=== PATIENT | male | born 1955 | race Caucasian/White ===

== ENCOUNTER 2019-02-02 16:21 | Emergency (ER) | payer SELFPAY ==
[~2019-02-02] VITALS: Wt 80.0 kg
[2019-02-02 16:31] VITALS: BP 150/74; PULSE 58; RESP 18
[2019-02-02] MEDS ORDERED: OXYCODONE/ACETAMINOPHEN (10/325) TAB PO ONE (17:30)
--- NOTE | 2019-02-02 17:34 | ERD ---
ER Documentation Chief Complaint Chief Complaint R HIP PAIN FROM A FALL WEEK AGO. NO DEFORMITY NOTED. HPI 63-year-old male presents with a history stated that [place] He has a history of chronic right hip pain. He presented to the hospital and states that he had normal x-rays. He states that he has a appointment with his pain management doctor in 3 days. Requesting 1 Percocet p.o. as it is important and vent tonight. He is able to ambulate although with pain. Denies any deficits, weakness, head injury, vomiting, visua l changes. Denies any bleeding or lacerations. ROS All systems reviewed and are negative except as per history of present illness. Allergies Allergies: Coded Allergies: Penicillins (Verified Allergy, Unknown, HIVES, 02/02/19) PER LAURENT BIANCHI PMhx/Soc Medical and Surgical Hx: pt denies Medical Hx History of Surgery: Yes (right hip and wrist surgery) Hx Alcohol Use: No Hx Substance Use: No Hx Tobacco Use: Yes (1/2 pkg day) Smoking Status: Current every day smoker Fmx Family History: No diabetes, No coronary disease, No other Physical Exam Vitals Vital Signs Date Temp Pulse Resp B/P (MAP) Pulse Ox O2 O2 Flow FiO2 Time Delivery Rate 02/02/19 98.2 58 18 150/74 99 16:31 (99) Physical Exam Const: No acute distress Head: Atraumatic Eyes: Normal Conjunctiva ENT: Normal External Ears, Nose and Mouth. Neck: Full range of motion. No meningismus. Resp: Clear to auscultation bilaterally Cardio: Regular rate and rhythm, no murmurs Abd: Soft, non tender, non distended. Normal bowel sounds Skin: No petechiae or rashes Back: No midline or flank tenderness Ext: No cyanosis, or edema. Mild tenderness right greater trochanter. Minimal pain with passive range of motion of right hip. Patient is amatory with minimal discomfort and no deficits or weakness. Neur: Awake and alert Psych: Normal Mood and Affect Results 24 hrs Current Medications Medications Dose Sig/Kameron Start Time Status Last (Trade) Ordered Route PRN Stop Time Admin Dose Reason Admin Oxycodone/ 1 tab ONCE ONCE 02/02/19 DC 02/02/19 Acetaminophen PO 17:30 17:21 (Endocet 02/02/19 17:31 (10/ 325)) Procedures/MDM 63-year-old male presents with right hip pain after fall 1 week ago. He states that he had normal x-rays requesting one pain pill until he sees his pain management doctor. Patient has no signs or symptoms suggest head injury, neck injury, deficits, weakness or infection. Exam does not suggest fracture, dislocation. Patient was discharged home with recommendations for primary care follow-up, pain management as he states he is scheduled, return precautions for new or worsening symptoms. Note. Patient looks curiously familiar to another patient who presents regularly with similar chief complaint and past medical history. Registration confirms patient does not have identification and does not present insurance information or identifying documents. per pain management guidelines patient will not be given a prescription for controlled substance although patient does not request a prescription. Departure Diagnosis: Primary Impression: Hip pain Laterality: right Qualified Codes: M25.551 - Pain in right hip Condition: Stable Patient Instructions: Hip Strain Additional Instructions: Recheck for new or worsening symptoms with primary care doctor. TIMMY SCHMIDT MD February 02, 2019 17:33
== END 2019-02-02 17:46 | disposition left against medical advice (07) ==
LOC: FTE 16:21
DX: M25.551 Pain in right hip (principal); F17.210 Nicotine dependence, cigarettes, uncomplicated
CPT/HCPCS: 99283

== ENCOUNTER 2019-02-07 13:41 | Emergency (ER) | payer SELFPAY ==
[~2019-02-07] VITALS: Wt 80.0 kg
[2019-02-07 13:51] VITALS: BP 143/71; PULSE 71; RESP 18
--- NOTE | 2019-02-07 14:03 | EN ---
Date/Time of Note Date/Time of Note DATE: 02/07/19 TIME: 14:03 ER Progress Note Rapid medical evaluation was initiated on the patient. 63-year-old male presenting to the emergency department with complaints of right hip pain which is chronic in nature. He is requesting pain medication in the department and will be sent to ED 2 for further management. JEREMY VALLE PA-C February 07, 2019 14:03
--- NOTE | 2019-02-07 14:57 | ERD ---
ER Documentation Chief Complaint Chief Complaint RIGHT HIP PAIN, HAS OLD FX HPI 63-year-old male with past medical history of chronic pain followed by pain service who presents with complaint of chronic right hip pain patient known to ER for multiple visits including suspicion for use of aliases. Patient asking for single p.o. dose of Percocet at the time of evaluation. Was seen in the ER 3 days ago for similar complaints. Patient states he thought he had pain management follow-up today but states that he Medi-Rory confused as his follow-up is tomorrow allegedly. ROS All systems reviewed and are negative except as per history of present illness. Allergies Allergies: Coded Allergies: Penicillins (Verified Allergy, Unknown, HIVES, 02/07/19) PER LAURENT BIANCHI PMhx/Soc History of Surgery: Yes (right hip and wrist surgery) Anesthesia Reaction: No Hx Neurological Disorder: No Hx Respiratory Disorders: No Hx Cardiac Disorders: No Hx Psychiatric Problems: No Hx Miscellaneous Medical Probl: No Hx Alcohol Use: No Hx Substance Use: No Hx Tobacco Use: Yes (1/2 pkg day) Smoking Status: Current every day smoker FmHx Family History: No diabetes, No coronary disease, No other Physical Exam Vitals Vital Signs Date Temp Pulse Resp B/P (MAP) Pulse Ox O2 O2 Flow FiO2 Time Delivery Rate 02/07/19 98.1 71 18 143/71 99 13:51 (95) Physical Exam Const: No acute distress Head: Atraumatic Eyes: Normal Conjunctiva ENT: Normal External Ears, Nose and Mouth. Neck: Full range of motion. No meningismus. Resp: Clear to auscultation bilaterally Cardio: Regular rate and rhythm, no murmurs Abd: Soft, non tender, non distended. Normal bowel sounds Skin: No petechiae or rashes Back: No midline or flank tenderness Ext: No cyanosis, or edema Neur: Awake and alert Psych: Normal Mood and Affect Results 24 hrs Current Medications Medications Dose Sig/Kameron Start Time Status Last (Trade) Ordered Route PRN Stop Time Admin Dose Reason Admin Oxycodone/ 1 tab ONCE ONCE 02/07/19 DC 02/07/19 Acetaminophen PO 15:00 15:14 (Endocet 02/07/19 15:01 (10/ )) Procedures/MDM 63-year-old male presents with complaint of chronic right hip pain. Known to ER for multiple visits for same complaint. I have no suspicion for acute process and warranting emergent care or work-up. ED course: Single dose of Percocet, related to patient the need to establish care with pain management and have appropriate follow-up for his pain complaints DISPOSITION PLAN: We discussed follow up with the patient's primary care doctor within 24 to 48 hours. Patient counseled regarding my diagnostic impression and care plan. Prior to discharge all questions answered. Pt agrees with treatment plan and understands strict return precautions. Precautionary instructions provided including instructions to return to the ER if not improving or for any worsening or changing symptoms or concerns. Disclaimer: Inadvertent spelling and grammatical errors are likely due to EHR/dictation software use and do not reflect on the overall quality of patient care. Also, please note that the electronic time recorded on this note does not necessarily reflect the actual time of the patient encounter. Departure Diagnosis: Primary Impression: Hip pain Condition: Stable Patient Instructions: Chronic Pain Referrals: [facility] YOU HAVE RECEIVED A MEDICAL SCREENING EXAM AND THE RESULTS INDICATE THAT YOU DO NOT HAVE A CONDITION THAT REQUIRES URGENT TREATMENT IN THE EMERGENCY DEPARTMENT. FURTHER EVALUATION AND TREATMENT OF YOUR CONDITION CAN WAIT UNTIL YOU ARE SEEN IN YOUR DOCTORS OFFICE WITHIN THE NEXT 1-2 DAYS. IT IS YOUR RESPONSIBILITY TO MAKE AN APPOINTMENT FOR FOLOW-UP CARE. IF YOU HAVE A PRIMARY DOCTOR --you should call your primary doctor and schedule an appointment IF YOU DO NOT HAVE A PRIMARY DOCTOR YOU CAN CALL OUR PHYSICIAN REFERRAL HOTLINE AT IF YOU CAN NOT AFFORD TO SEE A PHYSICIAN YOU CAN CHOSE FROM THE FOLLOWING [facility] [address] [facility] [address] [facility] [place] [address] [facility] [facility] [facility] [address] [facility] [address] [facility]. [facility]. [address] Additional Instructions: Call your primary care doctor TOMORROW for an appointment during the next 2-3 days.See the doctor sooner or return here if your condition worsens before your appointment time. PAMELA BURGER PA-C February 07, 2019 14:57
[2019-02-07] MEDS ORDERED: OXYCODONE/ACETAMINOPHEN (10/325) TAB PO ONE (15:00)
== END 2019-02-07 15:15 | disposition home or self-care (01) ==
LOC: FTE 13:41
DX: M25.551 Pain in right hip (principal); F17.210 Nicotine dependence, cigarettes, uncomplicated
CPT/HCPCS: 99283

== ENCOUNTER 2019-02-10 09:25 | Emergency (ER) | payer SELFPAY ==
[~2019-02-10] VITALS: Ht 180.3 cm; Wt 79.0 kg
[2019-02-10 09:28] VITALS: BP 148/63; PULSE 66; RESP 16; Ht 180.3 cm; Wt 79.0 kg
[2019-02-10] MEDS ORDERED: ACETAMINOPHEN 500 MG TAB PO STA (10:03)
--- NOTE | 2019-02-10 10:16 | ERD ---
ER Documentation Chief Complaint Chief Complaint FOR PAIN MEDS , RT HIP , RT WRIST PAIN , OLD INJURY HPI Patient is a 63-year-old male with history of chronic right hip pain and right wrist pain who presents the ER for concerns of needing Percocet. Patient states he ran out of his Percocet he wants a refill. Patient states he has an appointment in 2 days at home and travel needs medications until that time. Patient denies any falls or trauma. Patient denies any fevers or chills. ROS All systems reviewed and are negative except as per history of present illness. Allergies Allergies: Coded Allergies: Penicillins (Verified Allergy, Unknown, HIVES, 02/07/19) PER LAURENT BIANCHI PMhx/Soc History of Surgery: Yes (right hip and wrist surgery) Anesthesia Reaction: No Hx Neurological Disorder: No Hx Respiratory Disorders: No Hx Cardiac Disorders: No Hx Psychiatric Problems: No Hx Miscellaneous Medical Probl: No Hx Alcohol Use: No Hx Substance Use: No Hx Tobacco Use: Yes (1/2 pkg day) Smoking Status: Never smoker FmHx Family History: No diabetes Physical Exam Vitals Vital Signs Date Temp Pulse Resp B/P (MAP) Pulse Ox O2 O2 Flow FiO2 Time Delivery Rate 02/10/19 98.0 66 16 148/63 99 09:28 (91) Physical Exam GENERAL: Well-developed, well-nourished male. Appears in no acute distress. HEAD: Normocephalic, atraumatic. EYES: Pupils are equally reactive bilaterally. EOMs grossly intact. No conjunctival erythema. NECK: Supple. No meningismus. Normal range of motion of the neck. LUNG: Clear to auscultation bilaterally. No rhonchi, wheezing, rales or coarse breath sounds. HEART: Regular rate and rhythm. No murmurs, rubs or gallops. EXTREMITIES: Equal pulses bilaterally. No peripheral clubbing, cyanosis or edema. No unilateral leg swelling. NEUROLOGIC: Alert and oriented. Moving all four extremities without any difficulty. Normal speech. Uses cane to ambulate. SKIN: Normal color. Warm and dry. No rashes or lesions. Results 24 hrs Current Medications Medications Dose Sig/Kameron Start Time Status Last (Trade) Ordered Route PRN Stop Time Admin Dose Reason Admin 1,000 mg ONCE STAT 02/10/19 DC Acetaminophen PO 10:03 (Tylenol 02/10/19 10:05 Tab) Ibuprofen 600 mg ONCE ONCE 02/10/19 (Motrin) PO 10:30 02/10/19 10:31 Procedures/[facility] MEDICAL DECISION MAKING: Patient is a 63-year-old male with a history of chronic right hip pain and wrist pain who presents the ER for concerns of needing Percocet.. Vital signs were reviewed. Patient is afebrile. Patient was not hypoxic. Patient was hemodynamically stable. Patient denies any falls or trauma. Patient was noted to have steady gait with use of his cane. This patient is well-known to this emergency department and myself. I have seen him in the past numerous times. Patient checks into the ER with numerous different names and requests pain medications at each visit. Patient was advised to not get any narcotic pain medication at this visit. Patient was offered Tylenol and ibuprofen. He was advised he should follow-up with his regular doctor for any additional refills needed. Patient states he has an appointment with his specialist anxiety can also speak to specialist about his pain medication. Patient is nontoxic, [id number] prior to discharge. DISCHARGE: At this time, patient is stable for discharge and outpatient management. I have instructed the patient to follow-up with his/her primary care physician in 1-2 days. I have discussed with the patient the possibility of needing to see a specialist for further workup and imaging studies if symptoms persist. I have instructed the patient to promptly return to the ER for any new or worsening symptoms including increased pain, fever, nausea, vomiting, weakness or LOC. The patient and/or family expressed understanding of and agreement with this plan. All questions were answered. Home care instructions were provided. Disclaimer: Inadvertent spelling and grammatical errors are likely due to EHR/dictation software use and do not reflect on the overall quality of patient care. Also, please note that the electronic time recorded on this note does not necessarily reflect the actual time of the patient encounter. Departure Diagnosis: Primary Impression: Drug-seeking behavior Additional Impressions: Chronic hip pain Laterality: unspecified laterality Qualified Codes: M25.559 - Pain in unspecified hip; G89.29 - Other chronic pain Encounter for medication refill Condition: Fair Patient Instructions: Taking Medicine Safely Referrals: COMM[facility]ITY CLINICS YOU HAVE RECEIVED A MEDICAL SCREENING EXAM AND THE RESULTS INDICATE THAT YOU DO NOT HAVE A CONDITION THAT REQUIRES URGENT TREATMENT IN THE EMERGENCY DEPARTMENT. FURTHER EVALUATION AND TREATMENT OF YOUR CONDITION CAN WAIT UNTIL YOU ARE SEEN IN YOUR DOCTORS OFFICE WITHIN THE NEXT 1-2 DAYS. IT IS YOUR RESPONSIBILITY TO MAKE AN APPOINTMENT FOR FOLOW-UP CARE. IF YOU HAVE A PRIMARY DOCTOR --you should call your primary doctor and schedule an appointment IF YOU DO NOT HAVE A PRIMARY DOCTOR YOU CAN CALL OUR PHYSICIAN REFERRAL HOTLINE AT IF YOU CAN NOT AFFORD TO SEE A PHYSICIAN YOU CAN CHOSE FROM THE FOLLOWING [facility] [address] [facility] [address] [facility] [facility] [address] [facility] [address] [facility] [address] [facility]. [facility] [address] [facility]. [facility] YOU HAVE RECEIVED A MEDICAL SCREENING EXAM AND THE RESULTS INDICATE THAT YOU DO NOT HAVE A CONDITION THAT REQUIRES URGENT TREATMENT IN THE EMERGENCY DEPARTMENT. FURTHER EVALUATION AND TREATMENT OF YOUR CONDITION CAN WAIT UNTIL YOU ARE SEEN IN YOUR DOCTORS OFFICE WITHIN THE NEXT 1-2 DAYS. IT IS YOUR RESPONSIBILITY TO MAKE AN APPOINTMENT FOR FOLOW-UP CARE. IF YOU HAVE A PRIMARY DOCTOR --you should call your primary doctor and schedule and appointment IF YOU DO NOT HAVE A PRIMARY DOCTOR YOU CAN CALL OUR PHYSICIAN REFERRAL HOTLINE AT . IF YOU CAN NOT AFFORD TO SEE A PHYSICIAN YOU CAN CHOSE FROM THE FOLLOWING [facility]: [facility] [address] [place] [address] [facility] [address] [place] [address] [facility] [address] [place] [address] Additional Instructions: Call your primary care doctor TOMORROW for an appointment during the next 1-2 days.See the doctor sooner or return here if your condition worsens before your appointment time. CARSON MUSA PA-C February 10, 2019 10:16
[2019-02-10] MEDS ORDERED: IBUPROFEN 600 MG TAB PO ONE (10:30)
== END 2019-02-10 10:21 | disposition home or self-care (01) ==
LOC: FTE 09:25
DX: G89.29 Other chronic pain (principal); Z72.89 Other problems related to lifestyle; Z76.0 Encounter for issue of repeat prescription; Z87.891 Personal history of nicotine dependence
CPT/HCPCS: 99282